=== PATIENT | female | born 1970 | race Caucasian/White ===

== ENCOUNTER 2016-10-20 12:50 | Emergency (ER) | payer OTHER ==
[2016-10-20 12:57] VITALS: TEMP 98.1; BMI 25.4
[2016-10-20] MEDS ORDERED: LORATADINE 10 MG TABLET PO ONE (13:02)
[2016-10-20] MEDS ORDERED: LORATADINE 10 MG TABLET ONE (13:03)
--- NOTE | 2016-10-20 13:09 | PDOC ---
History of Present Illness <Herber Carver - Last Filed: 10/20/16 16:34> - History of Present Illness Initial Comments: 10/20/16 17:04 The patient is a 46 year old female, with no significant past medical history, who presents to the emergency department with throat and ear itching s/p eating tuna with avocado today. She reports an itching sensation in the back of her throat, as well as, to her bilateral ears, She reports similar symptoms after eating shrimp and some fruits. She denies ever experiencing swelling with any of her allergic reactions in the past. She states she usually takes a zyrtec when she feels she is having an allergic reaction, however, states she did not have any antihistamines in the house today. She denies skin itching or skin rash. She denies chest pain, shortness of breath, headache and dizziness. She denies fever, chills, nausea, vomit, diarrhea and constipation. She denies dysuria, frequency, urgency and hematuria. Allergies: shrimp Social history: Denies toxic habits <Savanna Manzo - Last Filed: 10/20/16 17:05> - General Chief Complaint: Allergic Reaction Stated Complaint: EMPLOYEE, ALLERGIC REACTION Time Seen by Provider: 10/20/16 13:02 Past History - Past Medical History Other medical history: PATIENT DENIES MEDICAL HISTORY - Psycho/Social/Smoking Cessation Hx Anxiety: No Suicidal Ideation: No Smoking Status: No Smoking History: Never smoked Number of Cigarettes Smoked Daily: 0 Hx Alcohol Use: No Drug/Substance Use Hx: No Substance Use Type: None Hx Substance Use Treatment: No <Herber Carver - Last Filed: 10/20/16 16:34> <Savanna Manzo - Last Filed: 10/20/16 17:05> - Past Medical History Allergies/Adverse Reactions: Allergies Allergy/AdvReac Type Severity Reaction Status Date / Time No Known Allergies Allergy Verified 10/20/16 12:58 Home Medications: Ambulatory Orders Prednisone [Deltasone -] 40 mg PO DAILY #8 tablet 10/20/16 Review of Systems - Review of Systems Able to Perform ROS?: Yes Comments:: 10/20/16 17:04 CONSTITUTIONAL: No reported: Fever, Chills, Diaphoresis, Generalized Weakness, Malaise, Loss of Appetite HEENT: (+) itching to ears and throat. No reported: Rhinorrhea, Nasal Congestion, Throat Pain, Throat Swelling, Difficulty Swallowing, Mouth Swelling, Ear Pain, Eye Pain, Visual Changes CARDIOVASCULAR: No reported: Chest Pain, Syncope, Palpitations, Irregular Heart Rate, Lightheadedness, Peripheral Edema RESPIRATORY: No reported: Cough, Shortness of Breath, SOB with Exertion, Orthopnea, Wheezing , Stridor, Hemoptysis GASTROINTESTINAL: No reported: Abdominal pain, Abdominal Distension, Nausea, Vomiting, Diarrhea, Constipation, Melena, Hematochezia GENITOURINARY: No reported: Dysuria, Frequency, Urgency, Hesitancy, Flank Pain, Genital Pain MUSCULOSKELETAL: No reported: Myalgia, Arthralgia, Joint Swelling, Back pain, Neck Pain SKIN: No reported: Rash, Itching, Pallor HEMEATOLOGIC/IMMUNOLOGIC: No reported: Easy Bleeding, Easy Bruising, Lymphadenopathy, Frequent infections ENDOCRINE: No reported: Unexplained Weight Gain, Unexplained Weight Loss, Heat Intolerance , Cold Intolerance NEUROLOGIC: No reported: Headache, Focal Weakness, Paresthesias, Vertigo, Lightheadedness, Unsteady Gait, Seizure, Mental Status Changes, Incontinence PSYCHIATRIC: No reported: Anxiety, Depression <Savanna Manzo - Last Filed: 10/20/16 17:05> *Physical Exam - Vital Signs Last Vital Signs Temp Pulse Resp BP Pulse Ox 98.1 F 67 18 117/67 100 10/20/16 12:55 10/20/16 12:55 10/20/16 12:55 10/20/16 12:55 10/20/16 12:55 <Herber Carver - Last Filed: 10/20/16 16:34> - Vital Signs Last Vital Signs Temp Pulse Resp BP Pulse Ox 98.1 F 67 18 117/67 100 10/20/16 12:55 10/20/16 12:55 10/20/16 12:55 10/20/16 12:55 10/20/16 12:55 - Physical Exam Comments: 10/20/16 17:04 GENERAL: The patient is awake, alert, and fully oriented, Nontoxic - in no acute distress. HEAD: Normocephalic, atraumatic. EYES: extraocular movements intact, sclera anicteric, conjunctiva clear. ENT: Normal voice, Moist mucous membranes. airways patent. no stridor. NECK: Normal range of motion, supple LUNGS: Breath sounds equal, clear to auscultation bilaterally. No wheezes, no rhonchi, no rales. HEART: Regular rate and rhythm, without murmur, rub or gallop. ABDOMEN: Soft, nontender, normoactive bowel sounds. No guarding, no rebound.No CVA tenderness EXTREMITIES: Normal range of motion, no edema. No clubbing or cyanosis. No cords, erythema, or tenderness. NEUROLOGICAL: No facial assymetry, Normal speech, PSYCH: Normal mood, normal affect. SKIN: Warm, Dry, normal turgor, <Savanna Manzo - Last Filed: 10/20/16 17:05> ED Treatment Course - Medications Given in the ED: ED Medications Discontinued Medications Generic Name Dose Route Start Last Admin Trade Name Freq PRN Reason Stop Dose Admin Albuterol Sulfate 1 amp 10/20/16 13:22 10/20/16 13:23 Ventolin 0.083% Nebulizer Soln - NEB 10/20/16 13:23 1 amp ONCE ONE Administration Guaifenesin/Codeine Phosphate 10 ml 10/20/16 14:53 10/20/16 15:07 Robitussin Ac - PO 10/20/16 14:54 10 ml ONCE ONE Administration Loratadine 10 mg 10/20/16 13:02 10/20/16 13:23 Claritin - PO 10/20/16 13:03 10 mg ONCE ONE Administration Prednisone 60 mg 10/20/16 13:55 10/20/16 14:03 Deltasone - PO 10/20/16 13:56 60 mg ONCE ONE Administration <Savanna Manzo - Last Filed: 10/20/16 17:05> Medical Decision Making - Medical Decision Making 10/20/16 13:08 suspect mild allergic reaction no airway compromise, rashes, clear lungs, no abd pain/distress will give claritin as pt states she does not want something sedating will observe here in ED A portion of this note was documented by scribe services under my direction. I have reviewed the details of the note, within reason, and agree with the documentation with the following case summary and management plan written by me <Herber Carver - Last Filed: 10/20/16 16:34> *DC/Admit/Observation/Transfer - Discharge Dispostion Admit: No <Herber Carver - Last Filed: 10/20/16 16:34> - Attestations Scribe Attestion: 10/20/16 17:04 Documentation prepared by Savanna Manzo, acting as medical scientist for Herber Carver MD <Savanna Manzo - Last Filed: 10/20/16 17:05> Diagnosis at time of Disposition: Allergic reaction Qualifiers: Encounter type: initial encounter Qualified Code(s): T78.40XA - Allergy, unspecified, initial encounter - Discharge Dispostion Disposition: HOME Condition at time of disposition: Improved - Prescriptions Prescriptions: Prednisone [Deltasone -] 40 mg PO DAILY #8 tablet - Referrals Referrals: Chad Peters MD [Primary Care Provider] - - Patient Instructions Printed Discharge Instructions: DI for General Allergic Reactions Additional Instructions: Return to the emergency department immediately with ANY new, persistent or worsening symptoms. Take the prednisone as prescribed. Take Robitussin as needed for your cough You MUST call and follow up with your doctor tomorrow for further evaluation of your symptoms. Results were discussed with you. Please make sure your doctor reviews the results of your emergency evaluation. Print Language: CITIZEN OF [place]
[2016-10-20] MEDS ORDERED: ALBUTEROL SO4 0.083% IH SOL 2.5 MG/3 ML VIAL.NEB. NEB ONE ×2 (13:22→13:24)
[2016-10-20] MEDS ORDERED: predniSONE 20 MG TABLET (UD) PO ONE (13:55)
[2016-10-20] MEDS ORDERED: predniSONE 20 MG TABLET (UD) ONE (14:04)
[2016-10-20] MEDS ORDERED: guaiFENesin/CODEINE 5 ML UNIT-DOSE CUPS PO ONE ×2 (14:53→15:09)
[2016-10-20] MEDS ORDERED: guaiFENesin/CODEINE 10 ML UNIT-DOSE CUPS PO ONE (14:53)
[2016-10-20 17:05] VITALS: BP 109/72; PULSE 65
== END 2016-10-20 17:05 | disposition home or self-care (01) ==
LOC: JER 12:50
PROC: 3E0F7GC Introduction of Other Therapeutic Substance into Respiratory Tract, Via Natural or Artificial Opening (ICD-10-PCS; principal; 2016-10-20)
DX: T78.1XXA Other adverse food reactions, not elsewhere classified, initial encounter (principal)
CPT/HCPCS: 99281-25

== ENCOUNTER 2018-10-03 09:09 | Emergency (ER) | payer OTHER | END 2018-10-03 12:10 | disposition home or self-care (01) | LOC: JERFT 09:09 ==

== ENCOUNTER 2021-04-17 20:31 | Emergency (ER) | payer OTHER ==
[2021-04-17 21:01] VITALS: BMI 25.7
[2021-04-17] MEDS ORDERED: ACETAMINOPHEN 500 MG TABLET (FP) PO ONE (21:48)
[2021-04-17] MEDS ORDERED: IBUPROFEN 400 MG TABLET (FP) PO ONE ×2 (21:48→22:04)
[2021-04-17] MEDS ORDERED: LIDOCAINE 5% TOPICAL PATCH TP ONE (21:48)
[2021-04-17] MEDS ORDERED: METHOCARBAMOL 750 MG TAB PO ONE (22:00)
[2021-04-17] MEDS ORDERED: LIDOCAINE PATCH REMOVAL MC SCH (22:00)
[2021-04-17] MEDS ORDERED: METHOCARBAMOL 500 MG TABLET ONE (22:03)
[2021-04-17] MEDS ORDERED: ACETAMINOPHEN 325 MG TABLET (FP) ONE (22:03)
[2021-04-17] MEDS ORDERED: LIDOCAINE 5% TOPICAL PATCH ONE (22:04)
[2021-04-17 22:16] LABS: BASO % 0.6 % (0-2.0); EOS % 3.3 % (0-4.5); HEMATOCRIT 37.5 % (32.4-45.2); HEMOGLOBIN 13.2 GM/dL (10.7-15.3); MCH 30.9 pg (25.7-33.7); MCHC 35.1 g/dl (32.0-36.0); MEAN CELL VOLUME 87.9 fl (80-96); MEAN PLT VOLUME 9.2 fl (7.5-11.1); MONO % 9.2 % (3.8-10.2); NEUT % 49.9 % (42.8-82.8); PLATELET COUNT 224 10^3/uL (134-434); RBC 4.27 M/mm3 (3.60-5.2); RDW 12.5 % (11.6-15.6)
[2021-04-17 22:34] LABS: CHLORIDE 107 mmol/L (98-107); SODIUM 142 mmol/L (136-145)
[2021-04-17 22:35] LABS: CALCIUM 8.5 mg/dL (8.5-10.1)
[2021-04-17 22:36] LABS: ALBUMIN 3.7 g/dl (3.4-5.0); ANION GAP 6 MMOL/L (8-16); BLOOD UREA NITROGEN 22.1 mg/dL (7-18); CO2 29 mmol/L (21-32); GLUCOSE,RANDOM 94 mg/dL (74-106)
[2021-04-17 22:40] LABS: CREATININE 0.9 mg/dL (0.55-1.3); SGOT/AST 19 U/L (15-37); SGPT/ALT 32 U/L (13-61)
[2021-04-17 22:42] LABS: ALK PHOS 82 U/L (45-117); BILIRUBIN,TOTAL 0.3 mg/dL (0.2-1); TOT PROT 6.9 g/dl (6.4-8.2)
[2021-04-17 23:25] VITALS: BP 100/68; PULSE 72; TEMP 97.8
== END 2021-04-17 23:30 | disposition home or self-care (01) ==
LOC: JER 20:31
DX: M54.50 Low back pain, unspecified (principal)
CPT/HCPCS: 36415; 71046-TC-FY; 80053; 82550; 84484; 85025; 93005; 93010; 99285-25